=== PATIENT | female | born 1980 | race Caucasian/White ===

== ENCOUNTER 2017-02-02 07:26 | Inpatient (IN) | payer OTHER ==
[~2017-02-02] VITALS: Ht 167.6 cm; Wt 88.0 kg
[~2017-02-02 07:26] MED LIST: BUTALB-ACETAMI1 EACH PO; CARAFATE1 GM/10 ML PO; ENDOMETRIN100 MG VAGINAL; ESTRACE2 MG PO; FISH OIL 1,0001 EAC2 PO; LEVOTHYROXINE100 MCG PO; LEVOTHYROXINE75 MCG PO; NORCO 5-325 TA1 EACH PO; ONDANSETRON HCL8 MG PO; OXYCODONE HCL15 MG PO; PEPCID20 MG PO; PRENATAL CAPLE1 EACH PO; PRENATAL-FOLIC1 EACH PO; PRILOSEC20 MG PO; SUMATRIPTAN SU100 MG PO; TUMS300 MG PO
--- NOTE | 2017-02-02 09:15 | NUR ---
02/02/17 0915 Kelley Barrios REPORT FROM MANAGER PUBLISHING.
--- NOTE | 2017-03-31 12:11 | OR ---
[facility] [address] [place], [place] [address] Signed [facility] DATE OF SERVICE: 02/02/2017 OPERATIVE NOTE PREOPERATIVE DIAGNOSES: 1.Di-di twins at 35 weeks and 6 days gestation. 2.Placental abruption with reassuring heart tracing. 3.Remote delivery. 4.GBS positive. POSTOPERATIVE DIAGNOSES: 1. Di-di twins at 35 weeks and 6 days gestation. 2. Placental abruption with reassuring heart tracing. 3. Remote delivery. 4. GBS positive. PROCEDURES PERFORMED: Mid transverse delivery, primary. ESTIMATED BLOODLOSS: 700 cc. COMPLICATIONS: None. ANESTHESIA: Spinal with general anesthesia. FINDINGS: On pelvic exam, patient with bright red vaginal bleeding with large clot in the vagina. Cervix was unfavorable, fingertip to 1 cm and thick. heart tracings were reassuring. Normal uterus, normal tubes and ovaries bilaterally. On hysterotomy, a large placental abruption was noted. Delivery of 2 viable male neonates with Apgars of twin A, 8/8 and twin B, 9/9. Cord blood was obtained and pending, and baby's weight is pending. Hemostasis at the end of procedure. INDICATIONS: Ms. De La Torre is a pleasant 36-year-old G4, C9-4-9-1with di-di twins via IVF at 35 and 6 weeks gestation. She reported that upon awaking this morning, she noticed a large amount of bright red blood per her vagina with some uterine tenderness but no contractions. She presented emergently to the hospital and was immediately evaluated and found to have a large amount of blood in the vagina with a clot and a nonfavorable cervix. heart tracing was reassuring and decision was made to proceed with emergent primary Electronically Signed By: BILLIE DURAN DO 03/31/17 1211 PATIENT NAME: SAMAN DE LA TORRE OPERATIVE REPORT DATE OF : 78 PHYSICIAN: BILLIE DURAN DO REPORT #: [id number] REPORT IS CONFIDENTIAL AND NOT TO BE RELEASED WITHOUT AUTHORIZATION [facility] [address] [place], [place] [address] Signed section. Risks, benefits, alternatives were discussed in detail with patient. Patient understands and wishes to proceed with the procedure. TECHNIQUE: Patient was taken to the operating room. A time-out was performed to confirm correct patient and correct procedure. Patient was placed in a supine position with a bump under her right hip after spinal anesthesia was adequately established. Ancef 2 g preoperatively given per skip protocol. ICPs were on and running. No preop heparin was indicated. After insuring adequate spinal anesthesia, a Pfannenstiel skin incision was made and carried down to and through the fascia in the midline inferior. The fascia was nicked in the midline. Fascial incision was extended bilaterally using sharp dissection. The rectus muscles were dissected sharply and bluntly from the underlying fascia and the peritoneum was entered bluntly. Peritoneal incision was extended bilaterally using blunt dissection. The lower uterine segment was identified, and hysterotomy was performed using a surgical scalpel. Hysterotomy was extended bilaterally using blunt dissection. A small amount of blood clot was noted on hysterotomy. The surgeon's hand was placed in the lower uterine incision. This head was of twin A, was elevated into the abdomen and delivered with the assistance of fundal pressure. The was vigorous and cried. The oral nasopharynx were bulb suctioned, and the cord was doubly clamped and cut. The was handed off to awaiting pediatric team for further care. The vertex of twin B was then noted in the lower uterine segment. The surgeon's hand was placed into the uterus and the head elevated into the abdomen and delivered with the assistance of fundal pressure. The remainder of the delivered easily with the assistance of fundal pressure. Oral nasopharynx were bulb suctioned, and the was vigorous and cried. The cord was also doubly clamped and cut and marked to differentiate cord from baby A and baby B. Baby twin B was handed to awaiting pediatric team for further care. Blood placenta was expressed intact with a centrally inserted 3 vessel cords. The uterus was cleared of remaining products of conception, and uterus was repaired using 0 Vicryl in a running, locked suture. A second vertical imbricating stitch of 0 Vicryl was applied with good hemostasis noted. The pelvis was irrigated and aga i n good hemostasis was noted. A cell sheet was applied to the lower uterine segment and peritoneum was reapproximated using 2-0 Vicryl in a running, nonlocked stitch. Rectus muscles were loosely approximated in the midline using 2 interrupted sutures of 0 Vicryl. The rectus muscles were examined and found to be hemostatic. ACell powder was applied to the rectus muscles. Fascia was reapproximated with 0 Vicryl in a running, nonlocked manner. Subcutaneous tissue was then reapproximated using 3-0 Vicryl in a running, nonlocked manner. Skin was reapproximated using surgical clare. The uterus was credate for a minimal amount of blood and the patient was taken to PACU in good and stable condition with the . Sponge, needle and instrument count was correct x2 at the end of procedure. Dr. Gerber was present and participated in all portions of the procedure. Electronically Signed By: BILLIE DURAN DO 03/31/17 1211 PATIENT NAME: SAMAN DE LA TORRE OPERATIVE REPORT DATE OF : 78 PHYSICIAN: BILLIE DURAN DO REPORT #: [id number] REPORT IS CONFIDENTIAL AND NOT TO BE RELEASED WITHOUT AUTHORIZATION [address] [place] [address] Signed Billie Duran DO JDW/Kiki /[id number] Electronically Signed By: BILLIE DURAN DO 03/31/17 1211 PATIENT NAME: SAMAN DE LA TORRE OPERATIVE REPORT DATE OF : 78 PHYSICIAN: BILLIE DURAN DO REPORT #: [id number] REPORT IS CONFIDENTIAL AND NOT TO BE RELEASED WITHOUT AUTHORIZATION
== END 2017-02-04 13:18 | disposition home or self-care (01) | DRG 765 ==
LOC: FBCO 07:26 → FBC 07:41 → FBCO 03-03 13:12
PROVIDERS: Obstetrics & Gynecology; ADMIT Obstetrics & Gynecology
PROC: 10D00Z1 Extraction of Products of Conception, Low, Open Approach (ICD-10-PCS; principal; 2017-02-02 07:48)
DX: O45.93 Premature separation of placenta, unspecified, third trimester (principal); O60.14X1 Preterm labor third trimester with preterm delivery third trimester, fetus 1; O60.14X2 Preterm labor third trimester with preterm delivery third trimester, fetus 2; O30.043 Twin pregnancy, dichorionic/diamniotic, third trimester; O76 Abnormality in fetal heart rate and rhythm complicating labor and delivery; O32.2XX1 Maternal care for transverse and oblique lie, fetus 1; O99.824 Streptococcus B carrier state complicating childbirth; O32.2XX2 Maternal care for transverse and oblique lie, fetus 2; O99.344 Other mental disorders complicating childbirth; F41.9 Anxiety disorder, unspecified; O99.284 Endocrine, nutritional and metabolic diseases complicating childbirth; E03.9 Hypothyroidism, unspecified; Z3A.35 35 weeks gestation of pregnancy; Z79.899 Other long term (current) drug therapy; Z88.5 Allergy status to narcotic agent; Z88.8 Allergy status to other drugs, medicaments and biological substances; Z91.040 Latex allergy status; Z37.2 Twins, both liveborn
CPT/HCPCS: 01961; 36415; 82803; 85025; 85027; 86850; 86900; 86901; 86920; C1763; J0330; J0690; J1170; J1650; J1885; J2250; J2274; J2370; J2405; J2590; J2704; J2765; J3010; J7120

== ENCOUNTER 2018-01-12 13:38 | Emergency (ER) | payer OTHER ==
[~2018-01-12] VITALS: Ht 167.6 cm; Wt 74.8 kg
[2018-01-12] MEDS ORDERED: NORCO 5-325 TA1 EACH PO (14:27)
[2018-01-12] MEDS ORDERED: VENLAFAXINE H37.5 M1 PO (14:28)
[2018-01-12] MEDS ORDERED: XIIDRA1 EACH OU (14:29)
== END 2018-01-12 16:35 | disposition home or self-care (01) ==
LOC: ED 13:38
DX: K92.2 Gastrointestinal hemorrhage, unspecified (principal); K21.9 Gastro-esophageal reflux disease without esophagitis; Z88.8 Allergy status to other drugs, medicaments and biological substances; Z91.040 Latex allergy status; Z79.899 Other long term (current) drug therapy
CPT/HCPCS: 80053; 81001; 83605; 84703; 85025; 86850; 86900; 86901; 96360; 96361; 99284; J7030

== ENCOUNTER 2019-12-05 06:23 | Emergency (ER) | payer OTHER ==
[~2019-12-05] VITALS: Ht 167.6 cm; Wt 74.4 kg
[~2019-12-05 06:23] MED LIST changes: +ONDANSETRON ODT8 MG PO; +VENLAFAXINE H37.5 M1 PO; +XIIDRA1 EACH OU; +ZOFRAN ODT4 MG PO
--- OUTSIDE RECORDS SUMMARY | 2019-12-05 06:26 | XMS ---
PreManage Notification: SAMAN HAY Security Bilingual Operator Events No recent Security Events currently on file CRITERIA MET - Group Notification - PDMP CARE PROVIDERS NIK MCDONOUGH Metal Moulder'S Assistant/Oracle Bpm Consultant 01/13/2018-Current PHONE: [phone] Candace has no Care Guidelines for this patient. E.DConcepcion VISIT COUNT (12 MO.) 1 [facility] 1 SALVATORE Yao TOTAL 2 NOTE: Visits indicate total known visits. ED/UCC VISIT TRACKING (12 MO.) 2019 06:24 SALVATORE James OR TYPE: Emergency COMPLAINT: - ABDOMINAL PAIN 04/07/2019 09:42 Mahin QUAN OR TYPE: Emergency DIAGNOSES: - Panic disorder [episodic paroxysmal anxiety] - panic attack INPATIENT VISIT TRACKING (12 MO.) No inpatient visits to display in this time frame [email or web address]
[2019-12-05] MEDS ORDERED: NEXIUM 24HR20 M2 PO (06:46)
[2019-12-05] MEDS ORDERED: PANTOPRAZOLE SO40 MG PO (09:11)
[2019-12-05] MEDS ORDERED: CARAFATE1 GM PO (09:11)
[2019-12-05] MEDS ORDERED: NORCO 7.5-3251 EACH PO (09:11)
== END 2019-12-05 09:20 | disposition home or self-care (01) ==
LOC: ED 06:23
DX: R10.13 Epigastric pain (principal); K21.9 Gastro-esophageal reflux disease without esophagitis; Z91.040 Latex allergy status; Z88.8 Allergy status to other drugs, medicaments and biological substances; Z79.899 Other long term (current) drug therapy
CPT/HCPCS: 80053; 81001; 83690; 85025; 96374; 96375; 99284-25; C9113; J1170; J7030

== ENCOUNTER 2020-10-03 05:55 | Day surgery (SDC) | payer OTHER ==
[~2020-10-03] VITALS: Ht 167.6 cm; Wt 71.8 kg
--- NOTE | ~2020-10-03 | OR ---
[facility] [place] [facility] [address] [place], [place] [address] Draft DATE OF OPERATION: 10/03/2020 SURGEON: Konstantin Nolasco MD PREOPERATIVE DIAGNOSIS: Heavy menstrual bleeding and endometrial mass. POSTOPERATIVE DIAGNOSIS: Heavy menstrual bleeding with submucous fibroid. PROCEDURE: Hysteroscopy with partial myomectomy and D and C. ELECTRICAL CONTROL ASSEMBLER: Dr. Duran. ANESTHESIA: General. ESTIMATED BLOOD LOSS: 20 mL. SPECIMEN: Submucous fibroid tissue and endometrial curettings. DRAINS: None. PACKING: None. FINDINGS: Normal vagina and normal cervix, normal size and shaped uterus, normal-appearing cavity except for a large submucous fibroid in the upper posterior endometrial cavity with moderate vascularity over the surface and broad base on the posterior aspect of the uterine cavity. There is a moderate amount of normal appearing endometrial tissue and the rest of the cavity with both tubal ostia seen and appearing normal. COMPLICATIONS: Difficult visualization due to blood and the position of the fibroid. PATIENT NAME: SAMAN HAY OPERATIVE REPORT DATE OF : 78 REPORT #: [id number] PHYSICIAN: KONSTANTIN NOLASCO MD PCP: NIK MEJIA MD REPORT IS CONFIDENTIAL AND NOT TO BE RELEASED WITHOUT AUTHORIZATION [facility] [address] [place] [id number] Draft DESCRIPTION OF PROCEDURE: The patient was brought to the operating room, placed in supine position. After adequate general anesthesia was obtained, she was placed in the dorsal lithotomy position, prepped and draped in usual sterile fashion. Weighted speculum was placed in the vagina and the anterior lip of the cervix was grasped with an Allis clamp. The cervix was serially dilated up to #7 dilator and then the hysteroscope which had been set up was placed in the endocervical canal and entered the uterine cavity under direct visualization. Sterile saline was used as distending medium. The endocervix appeared normal. Upon entering the uterus, it was difficult to visualize the entire cavity due to the uterine mass and on close inspection, it did seem to be in the upper posterior aspect of the cavity with only about half of the fibroid visualized in the cavity. The rest of the tissue appeared normal, so the MyoSure REACH instrument was placed through the hysteroscope, but on switching from the regular outflow tube to the MyoSure REACH, the cavity appeared bloody and was difficult to visualize the cavity again. The top of the fibroid was eventually visualized and the MyoSure REACH used to trim the fibroid down partially, but because of the visualization, the fibroid could not be completely removed. At this point, the hysteroscope was removed. The fluid deficit at this point was 850 mL, but had been 450 mL before starting any tissue removal and there was no sudden increase in fluid just a gradual increase in fluid loss. After removal of the hysteroscope, the cervix was dilated further and a sharp curette introduced in the uterine cavity and scraped 360-degree fashion removing small additional amount of tissue. At this point, all instruments were removed from the cervix and uterus and the cervix observed and noted to have good hemostasis. I was decided not to attempt further removal because of the slowly increasing fluid deficit and difficult visualization. At no time there appear to be any perforation of the uterus and the cavity was able to be filled and just seemed to slowly lose fluid. So at this point, all instruments were removed from the vagina. The patient tolerated the procedure well and went to the recovery room in good condition. The sponge and instrument counts were correct at the end of the procedure. Myomectomy specimen and uterine curettings were sent to Pathology for identification. Konstantin Nolasco MD MJB/MODL /[id number] PATIENT NAME: SAMAN HAY OPERATIVE REPORT DATE OF : 78 REPORT #: [id number] PHYSICIAN: KONSTANTIN NOLASCO MD PCP: NIK MEJIA MD REPORT IS CONFIDENTIAL AND NOT TO BE RELEASED WITHOUT AUTHORIZATION [address] [address] Draft cc: Nik Mejia MD Copies: NIK MEJIA MD ~ PATIENT NAME: SAMAN HAY OPERATIVE REPORT DATE OF : 78 REPORT #: [id number] PHYSICIAN: KONSTANTIN NOLASCO MD PCP: NIK MEJIA MD REPORT IS CONFIDENTIAL AND NOT TO BE RELEASED WITHOUT AUTHORIZATION
[~2020-10-03 05:55] MED LIST changes: +CARAFATE1 GM PO; +DIAZEPAM5 MG; +LEVOTHYROXINE88 MC1; +NEXIUM 24HR20 M2 PO; +NORCO 7.5-3251 EACH PO; +PANTOPRAZOLE SO40 MG PO
--- NOTE | 2020-10-03 08:20 | NUR ---
10/03/20 0820 Ruthie Champion 0813- PT ARRIVES TO PACU REACTIVE TO VOICE. PT REPORTS NO PAIN OR NAUSEA AND FALLS TO SLEEP WHEN NOT BEING TALKED TO. RESP EVEN AND UNLABORED. OXYGEN SAT HIGH 90'S TO 100% ON 9L VIA MASK. 0816- OXYGEN TITRATED DOWN TO 6L VIA MASK.
[2020-10-03] MEDS ORDERED: HYDROCODON-ACE1 EA10 PO (08:43)
[2020-10-03] MEDS ORDERED: MOTRIN IB200 MG PO (08:43)
--- NOTE | 2020-10-03 13:44 | NUR ---
PT TAKEN TO OR, IN RM READING. HE SEEMS VERY CONTENT, WILL REMAIN IN RM. HAS NO ISSUE OR QUESTIONS. GAVE BLESSING, WILL FOLLOW
--- NOTE | 2020-10-04 14:51 | PATH ---
[facility] [address] [place], [place] [address] Signed SPECIMEN(S): A ENDOMETRIAL CURETTINGS AND FIBROID SPECIMEN SOURCE: A. ENDOMETRIAL CURETTINGS AND FIBROID CLINICAL HISTORY: Heavy menstrual bleeding; endometrial mass. Hysteroscopy with removal of endometrial mass. FINAL PATHOLOGIC DIAGNOSIS: Endometrium and "fibroid", curettage: - Secretory phase endometrium. - Fragments of benign smooth muscle, compatible with leiomyoma. - Negative for atypical hyperplasia or malignancy. NAL:cml:C2Nr MICROSCOPIC EXAMINATION: Histologic sections of all submitted blocks are examined by light microscopy. These findings, together with the gross examination, support the pathologic diagnosis. GROSS DESCRIPTION: The specimen, labeled "PL, A," and designated on the requisition "EMC and fibroid," is received in formalin and consists of a Telfa pad and a section by containing multiple agudelo-white rubbery to dark red soft tissue fragments, 4.2 x 3.6 x 0.8 cm in aggregate. The specimen is submitted in toto in two cassettes (A1-A2). AI (under the direct supervision of a pathologist) The Gross Description was prepared using a voice recognition system. The report was reviewed for accuracy; however, sound-alike word errors, addition and/or deletions may occur. If there is any question about this report, please contact Client Services. PERFORMING LABORATORY: The technical component was performed by [facility], [address] [place] [id number] (Furniture Mover Driver: Alyson Sanchez MD; CLIA# [id number]). [facility] [address] [address] (CLIA# [id number]). Diagnostician: Yue Butt MD PATIENT NAME: SAMAN HAY PATHOLOGY DATE OF : 78 REPORT #: [id number] PHYSICIAN: MANJIT PATHOLOGY PCP: NIK MCDONOUGH MD REPORT IS CONFIDENTIAL AND NOT TO BE RELEASED WITHOUT AUTHORIZATION [address] [address] Signed Pathologist Electronically Signed 10/04/2020 Copies: ~ PATIENT NAME: SAMAN HAY PATHOLOGY DATE OF : 78 REPORT #: [id number] PHYSICIAN: MANJIT PATHOLOGY PCP: NIK MCDONOUGH MD REPORT IS CONFIDENTIAL AND NOT TO BE RELEASED WITHOUT AUTHORIZATION
== END 2020-10-03 09:00 | disposition home or self-care (01) ==
LOC: DS 05:55 → OPS 05:55
PROVIDERS: ATTEND General Practice
PROC: 0UB98ZZ Excision of Uterus, Via Natural or Artificial Opening Endoscopic (ICD-10-PCS; principal; 2020-10-03 06:45)
DX: D25.0 Submucous leiomyoma of uterus (principal); E03.9 Hypothyroidism, unspecified; K21.9 Gastro-esophageal reflux disease without esophagitis; G43.909 Migraine, unspecified, not intractable, without status migrainosus; R01.0 Benign and innocent cardiac murmurs; E78.00 Pure hypercholesterolemia, unspecified; Z88.5 Allergy status to narcotic agent; Z88.8 Allergy status to other drugs, medicaments and biological substances; Z91.040 Latex allergy status; Z80.41 Family history of malignant neoplasm of ovary
CPT/HCPCS: 00952; J0131; J1100; J1885; J2001; J2250; J2405; J2704; J3010; J7121

== ENCOUNTER 2021-04-23 04:13 | Emergency (ER) | payer OTHER ==
[~2021-04-23] VITALS: Ht 167.6 cm; Wt 66.7 kg
[~2021-04-23 04:13] MED LIST changes: +HYDROCODON-ACE1 EA10 PO; +MOTRIN IB200 MG PO
--- OUTSIDE RECORDS SUMMARY | 2021-04-23 04:14 | XMS ---
PreManage Notification: SAMAN HAY Security Belt Sander Stone Events No recent Security Events currently on file CRITERIA MET - Group Notification - PDMP CARE PROVIDERS NIK MCDONOUGH Paper Stacker/Digital Traffic Coordinator 01/13/2018-Current PHONE: [phone] Candace has no Care Guidelines for this patient. EThanh VISIT COUNT (12 MO.) 1 SALVATORE Yao TOTAL 1 NOTE: Visits indicate total known visits. ED/UCC VISIT TRACKING (12 MO.) 04/23/2021 04:13 SALVATORE James OR TYPE: Emergency COMPLAINT: - VAGINAL BLEEDING INPATIENT VISIT TRACKING (12 MO.) No inpatient visits to display in this time frame [email or web address]
[2021-04-23] MEDS ORDERED: LOTEMAX SM5 GM OP (04:31)
[2021-04-23] MEDS ORDERED: XIIDRA1 EACH OP (04:31)
--- NOTE | 2021-04-23 17:35 | EKG ---
[facility] [address] [facility] [place], [place] [address] Signed Sinus tachycardia Possible Left atrial enlargement Septal infarct , age undetermined Abnormal ECG No previous ECGs available Confirmed by TOM HOBSON MD ([id number]) on 04/23/2021 5:35:18 PM Electronically Signed By: TOM HOBSON MD 04/23/21 1735 PATIENT NAME: SAMAN HAY JEYSON Electrocardiogram DATE OF : 78 PHYSICIAN: TOM HOBSON MD REPORT #: [id number] REPORT IS CONFIDENTIAL AND NOT TO BE RELEASED WITHOUT AUTHORIZATION
== END 2021-04-23 06:30 | disposition home or self-care (01) ==
LOC: ED 04:13
DX: N93.9 Abnormal uterine and vaginal bleeding, unspecified (principal); R07.9 Chest pain, unspecified; E03.9 Hypothyroidism, unspecified; R00.0 Tachycardia, unspecified; Z91.040 Latex allergy status; Z88.5 Allergy status to narcotic agent; Z88.8 Allergy status to other drugs, medicaments and biological substances
CPT/HCPCS: 80053; 84484; 84703; 85025; 85610; 85730; 93005; 93010; 99285-25

== ENCOUNTER 2021-05-01 06:55 | Day surgery (SDC) | payer OTHER ==
[~2021-05-01] VITALS: Ht 167.6 cm; Wt 67.2 kg
[~2021-05-01 06:55] MED LIST changes: +LOTEMAX SM5 GM OP; +XIIDRA1 EACH OP
--- NOTE | 2021-05-01 12:11 | NUR ---
05/01/21 1211 Heather Moreland 1101 PT ARRIVED TO PACU ON 6L VIA MASK, VSS. PT SITTING UP IN BED AND GRABBING AT SIDE RAILS. RN REORIENTING PT TO PACU. PT UNABLE TO FOLLOW COMMANDS AND VERY DROWSY. RN CONTINUES TO REORIENT PT. RESP EVEN AND UNLABORED. 1105 PT ASKING ABOUT AND DENEIS PAIN AND NAUSEA. PT VERY DRWOSY. PT REPORTS FEELING SOB, O2 SAT 100% AND LUNG SOUNDS CLEAR. RN ENCOURAGES DEEP BREATHIONG AND COUGHING. 1109 PT REACHING FOR O2 MASK AND MASK REMOVED. HOB INCREASED. 1120 PT CONTINUES TO REPORT SOB AND VSS. PT MORE AWAKE AND STARTS TO REPORTS PAIN 02/01. "BUT MY BREATHING IS BUGGING ME MORE." 1123 DIRECTOR BUSINESS SYSTEMS CALLED AND NEW ORDER RECEIVED. 1125 TALKING TO PT. 1127 ANXIETY MEDICATION GIVEN.
--- NOTE | 2021-05-01 12:41 | NUR ---
1220 PT BACK TO ROOM FROM PACU, COMPLAINS OF PAIN 7/10 TO ABD OXY AND IBUPROFEN GIVEN, PT DENIES NAUSEA SHE IS EATING PUDDING AND DRINKING WATER TOLERATES WELL. AT BEDSIDE. PT TUCKED IN WITH CALL LIGHT WITHIN REACH.
--- NOTE | 2021-05-01 12:44 | NUR ---
1240 PT RESTING COMFORTABLY, TOOK RX TO PHARMACY TO GET FILLED BEFORE SHE IS DISCHARGED.
--- NOTE | 2021-05-01 13:09 | OR ---
[facility] [address] [place], [place] [address] Signed DATE OF OPERATION: 05/01/2021 SURGEON: Konstantin Nolasco MD PREOPERATIVE DIAGNOSES: Submucous fibroids and abnormal uterine bleeding. POSTOPERATIVE DIAGNOSES: Submucous fibroids and abnormal uterine bleeding, omental adhesions. PROCEDURES: Total laparoscopic hysterectomy, bilateral salpingectomy, lysis of adhesions, and cystoscopy. SANITATION ASSOCIATE: Dr. Duran. ANESTHESIA: General. ESTIMATED BLOOD LOSS: 10 mL. SPECIMEN: Uterus with cervix and both fallopian tubes. DRAINS: Chung to bladder. PACKING: None. FINDINGS: Cervix large, thick closed, uterus 6-week size, symmetric, free of any endometriosis or adhesions. The anterior cul-de-sac showed slight elevation of bladder, but no dense adhesions. Posterior cul-de-sac was free of any endometriosis or adhesions. There was a slight to moderate amount of dark blood in the abdomen prior to surgery. The left tube was normal in length and had normal-appearing fimbriated end. No adhesions. The left ovary was normal in size and shape without any evidence of endometriosis or adhesions. The right tube was normal in length with a normal-appearing fimbriated end Electronically Signed By: KONSTANTIN NOLASCO MD 05/01/21 1309 PATIENT NAME: SAMAN HAY OPERATIVE REPORT DATE OF : 78 REPORT #: [id number] PHYSICIAN: KONSTANTIN NOLASCO MD PCP: NIK MEJIA MD REPORT IS CONFIDENTIAL AND NOT TO BE RELEASED WITHOUT AUTHORIZATION [facility] [address] [facility] [place] [address] Signed and no adhesions. Right ovary is normal size and shape without any evidence endometriosis or adhesions. There were some omental adhesions just below the level of the umbilicus somewhat filmy, but also some small vasculature within the adhesions. There is no bowel in these adhesions. No other adhesions or masses were seen. DESCRIPTION OF PROCEDURE: The patient was brought to the operating room, placed in supine position. After adequate general anesthesia was obtained, she was placed in the dorsal lithotomy position, and prepped and draped in usual sterile fashion. A Chung catheter was placed in the bladder and a weighted speculum was placed in the vagina. The anterior lip of the cervix was grasped with an Allis clamp. The AdTribare uterine manipulator was then carefully inserted through the cervix into the fundus of the uterus and the balloon filled with sterile water. The Allis clamp and weighted speculum were removed and the cervical cap slid up and around the cervix and the vaginal cup slid up against the cervical cap and tightened in place. A finger was used to confirm the correct placement of the cap in the cup. Attention was then drawn to the abdomen. A small infraumbilical skin incision was made with a scalpel after injecting the area with 0.25% Marcaine with epinephrine. Subcutaneous tissue was dissected with Metzenbaum scissors and the fascia identified, grasped with hemostats, elevated, nicked with Metzenbaum scissors and extended in a transverse fashion using Metzenbaum scissors. Retention stitches of 0 Vicryl suture placed above and below the incision. The peritoneum was opened with Metzenbaum scissors. The Jena cannula and sleeve then entered the abdomen under direct visualization. The balloon was filled with air in the outer sleeve slid down and attached in place. The retention stitches were then attached to the outer sleeve to further hold this in place. The trocar was removed and the laparoscope video attachment entered the abdomen under direct visualization. The above findings were noted. A small skin incision was made on the left side about 10 cm lateral to the midline just below the level of the umbilicus and after transiluminating the abdominal wall and then injecting the area with 0.25% Marcaine with epinephrine, a small skin incision was made and a bladed 5-mm trocar and sleeve entered the abdomen under direct visualization. The trocar was removed, the balloon filled with air and then blunt grasper inserted. On the right side again just below the level of the umbilicus and again approximately 10 cm lateral to the midline, area was transilluminated to avoid any vessels. The area injected with 0.25% Marcaine with epinephrine and then, a skin incision made with a scalpel. A Veress needle with expandable sleeve was placed into the abdomen under direct visualization. The Veress needle was removed and expandable trocar with port was then placed through the expandable sleeve into the abdomen again under direct visualization, trocar was removed and 2nd blunt grasper inserted. The above findings were confirmed. The LigaSure bipolar [place] forceps were then used for dissection. Electronically Signed By: KONSTANTIN NOLASCO MD 05/01/21 1309 PATIENT NAME: SAMAN HAY OPERATIVE REPORT DATE OF : 78 REPORT #: [id number] PHYSICIAN: KONSTANTIN NOLASCO MD PCP: NIK MEJIA MD REPORT IS CONFIDENTIAL AND NOT TO BE RELEASED WITHOUT AUTHORIZATION [address] [address] Signed The omental adhesions were taken down against the anterior abdominal wall by cauterizing then cutting the adhesions. The mesosalpinx of each tube was cauterized and cut down the length of the tube and then the proximal portion of the tube was cauterized and transected and the two tubes taken out through the larger right lateral port. The utero-ovarian ligaments were cauterized in several places and cut on each side. Then on the left side, the round ligament was cauterized in several places and cut and the upper broad ligament cauterized and cut. The anterior and posterior leaves of the broad ligament were then individually, cauterized and cut down the length of the broad ligament, staying near the uterus and extending down to the level of the cervical cap and across to the midline at the level of the cervical cap. This was done anteriorly and posteriorly. The uterine vessels were then exposed, these were cauterized in several places and inside the cervical cap, which could be palpated and cut right along the edge of the cervical cap. The dissection was taken down until just the vaginal wall was remained on the left. On the right side, the round ligament was cauterized and cut. The upper broad ligament cauterized and cut and then, the anterior and posterior leaves of the broad ligament were individually cauterized and cut down the length of the broad ligament and continuing and connecting with previous dissection in the midline. The exposed uterine vessels were cauterized in several places and cut at the level of the cervical cap. The tissue around the cervical cap was cauterized and cut down to the vaginal wall. With all vessels cauterized, the Sonicision was brought in and the vaginal wall opened in the groove of the cervical cap, this was done starting in the midline posteriorly and extending in the groove of the cup from posterior to anterior on the left side and then, posterior to anterior on the right side meeting again anteriorly in the midline, this the uterus and cervix from the vaginal wall. Attention was then drawn back to the vagina, where the VCare uterine manipulator was carefully removed, the cervix seen in the vagina, so it was grasped with an Allis clamp and the uterus carefully removed from the vagina. A sponge filled glove was put in the vagina, so that the abdomen could be re-insufflated. The abdomen was re-insufflated and the pelvis was irrigated, suctioned and examined noted to have good hemostasis. The Endostitch with delayed absorbable barbed suture was used to close the cuff, this was done from the right uterosacral ligament, posterior to anterior and then, the anterior vaginal wall posterior to anterior. With the first bite, the stitch was placed through the loop at the end of the barbed suture to keep it from pulling through. The closure was then continued [id number] first on the posterior edge of the vaginal wall then the anterior edge of the vaginal wall, this was continued across till reaching the level of the left uterosacral ligament. The stitch was then taken back through the combined cuff posterior to anterior back to the midline to lock the stitch in place and then, the suture cut against the vaginal wall. The entire pelvis was irrigated, suctioned, examined and noted to have good hemostasis. At Electronically Signed By: KONSTANTIN NOLASCO MD 05/01/21 1309 PATIENT NAME: SAMAN HAY OPERATIVE REPORT DATE OF : 78 REPORT #: [id number] PHYSICIAN: KONSTANTIN NOLASCO MD PCP: NIK MEJIA MD REPORT IS CONFIDENTIAL AND NOT TO BE RELEASED WITHOUT AUTHORIZATION [address] [address] Signed this point, all instruments were removed, the gas allowed to escape and the final sleeve removed. The infraumbilical fascia was identified and then closed with a running stitch of 0 Vicryl suture. The two retention stitches were tied together for further support. The three skin incisions were closed using subcuticular stitches of 4-0 Vicryl. Attention was then drawn back to the vagina. Chung catheter was removed and a 70-degree cystoscope was carefully placed in the urethra and entered the bladder under direct visualization. Sterile water was used as distending medium. The bladder was filled. The dome, both sides and anterior and posterior were carefully examined. No stitches, no defects and no were noted. Both ureteral orifices were easily identified and both showed good flow of urine jets. So, the bladder was drained and the Chung catheter placed back in the bladder. The sponge filled glove was also removed from the vagina. The patient tolerated the procedure well, went to recovery room in good condition. The sponge, needle, and instrument counts were correct in the uterus with both fallopian tubes sent to Pathology for identification. Konstantin Nolasco MD MJB/MODL /[id number] cc: Nik Mejia MD Copies: NIK MEJIA MD ~ Electronically Signed By: KONSTANTIN NOLASCO MD 05/01/21 1309 PATIENT NAME: SAMAN HAY OPERATIVE REPORT DATE OF : 78 REPORT #: [id number] PHYSICIAN: KONSTANTIN NOLASCO MD PCP: NIK MEJIA MD REPORT IS CONFIDENTIAL AND NOT TO BE RELEASED WITHOUT AUTHORIZATION
--- NOTE | 2021-05-01 13:51 | NUR ---
1345 [place] CATH REMOVED THERE WAS 200ML OF YELLOW URINE IN [place] BAG. PT WANTED TO GET UP AND WALK AROUND SHE FEELS THAT IT WILL HELP REMOVE SOME CO2 FROM ABD. PT ASKED TO USE RESTROOM SHE WAS ABLE TO VOID 20ML OF CLEAR YELLOW URINE. HER BENNIE PAD HAS BEEN CLEAN SINCE SHE CAME BACK FROM PACU.
--- NOTE | 2021-05-01 13:59 | NUR ---
1350 PT REPORTS PAIN AT 3/10.
--- NOTE | 2021-05-01 15:19 | NUR ---
1440 PT UP TO THE BATHROOM SHE WAS ABLE TO VOID 200ML OF YELLOW URINE, HER BENNIE PAD WAS CLEAN AND DRY. PT REPORTS READINESS TO GO HOME, BOTH IV'S WERE DC'D TIP IN TACT. DISCHARGE INSTRUCTIONS GIVEN TO BOTH PT AND BOTH VOICED UNDERSTANDING
--- NOTE | 2021-05-02 16:12 | PATH ---
[facility] [address] [place], [place] [address] Signed SPECIMEN(S): A UTERUS, CERVIX, BILAT FALLOPIAN TUBES SPECIMEN SOURCE: A. UTERUS, CERVIX, BILAT FALLOPIAN TUBES CLINICAL HISTORY: Submucous leiomyoma of uterus. TLH, BS, cysto. FINAL PATHOLOGIC DIAGNOSIS: Uterus, cervix, bilateral fallopian tubes, hysterectomy with bilateral salpingectomy: - Ectocervical and endocervical epithelia within normal limits. - Uterus with proliferative-phase endometrium and subserosal endometriosis. - Submucosal leiomyoma. - Fallopian tubes within normal limits. - Paratubal cyst. TWK:[facility]:C2NR MICROSCOPIC EXAMINATION: Histologic sections of all submitted blocks are examined by light microscopy. These findings, together with the gross examination, support the pathologic diagnosis. GROSS DESCRIPTION: The specimen, labeled "PL, uterus, cervix, bilateral fallopian tubes," is received in formalin and consists of uterus and cervix with attached and undesignated fallopian tubes. Specimen is previously longitudinally opened and cannot be oriented. The uterus measures 5.5 x 5.0 x 7.3 cm. The serosal surface is pink-agudelo, smooth. The uterus weighs 145 grams. The ectocervix is pink-agudelo, smooth and measures 3.5 x 3.7 cm. Sectioning through the cervix reveals pink-agudelo, homogenous tissue. The endometrial cavity measures 4.2 x 3.1 cm. It is lined with pink-red, hemorrhagic endometrium. Endometrial cavity is almost completely obliterated with white, firm, subendometrial nodule that measures 4.5 cm in greatest dimension. Sectioning through the nodule reveals white, firm, whorled surface. The remaining of the myometrium is pink-agudelo, homogenous. Myometrium measures 2.0 cm in thickness the endometrium measures up to 0.2 cm. Both fallopian tubes show fimbria and violaceous and smooth serosa. The first fallopian tube measures 6.0 x 0.6 cm. Second fallopian tube measures 5.5 cm in PATIENT NAME: SAMAN HAY PATHOLOGY DATE OF : 78 REPORT #: [id number] PHYSICIAN: MANJIT HARRIS PCP: NIK MCDONOUGH MD REPORT IS CONFIDENTIAL AND NOT TO BE RELEASED WITHOUT AUTHORIZATION [facility] [address] [place], [place] [address] Signed length and 0.7 cm in diameter. Sectioning through both fallopian tubes is grossly unremarkable. Cassette Summary: (A1) Cervix, eligibility services representative sections (A2) Endomyometrium, eligibility services representative sections (A3-A4) Subendometrial nodule, eligibility services representative sections (A5) First fallopian tube, eligibility services representative sections (A6) Second fallopian tube, eligibility services representative sections JS (under the direct supervision of a pathologist) The Gross Description was prepared using a voice recognition system. The report was reviewed for accuracy; however, sound-alike word errors, addition and/or deletions may occur. If there is any question about this report, please contact Client Services. PERFORMING LABORATORY: The technical component was performed by [facility] [address] (Nurseryperson: Alyson Sanchez MD; CLIA# [id number]). Professional [facility], [address] [address] (IA# [id number]). Diagnostician: Steven Dukes MD Pathologist Electronically Signed 05/02/2021 Copies: ~ PATIENT NAME: SAMAN HAY PATHOLOGY DATE OF : 78 REPORT #: [id number] PHYSICIAN: MANJIT PATHOLOGY PCP: NIK MCDONOUGH MD REPORT IS CONFIDENTIAL AND NOT TO BE RELEASED WITHOUT AUTHORIZATION
--- NOTE | 2021-05-02 21:32 | EKG ---
[facility] [address] [facility] [place] [address] Signed Normal sinus rhythm Normal ECG When compared with ECG of 23-APR-2021 05:16, Nonspecific T wave abnormality no longer evident in Anterolateral leads Confirmed by CHAI TAYLOR DO ([id number]) on 05/02/2021 9:32:04 PM Electronically Signed By: CHAI TAYLOR DO 05/02/21 213 PATIENT NAME: SAMAN HAY Electrocardiogram DATE OF : 78 PHYSICIAN: CHAI TAYLOR DO REPORT #: [id number] REPORT IS CONFIDENTIAL AND NOT TO BE RELEASED WITHOUT AUTHORIZATION
== END 2021-05-01 15:00 | disposition home or self-care (01) ==
LOC: DS 06:55
PROVIDERS: ATTEND General Practice
PROC: 0UT94ZZ Resection of Uterus, Percutaneous Endoscopic Approach (ICD-10-PCS; principal; 2021-05-01 09:00)
PROC: 0UT74ZZ Resection of Bilateral Fallopian Tubes, Percutaneous Endoscopic Approach (ICD-10-PCS; 2021-05-01 09:00)
DX: D25.0 Submucous leiomyoma of uterus (principal); N80.0 Endometriosis of uterus; N83.8 Other noninflammatory disorders of ovary, fallopian tube and broad ligament; K66.0 Peritoneal adhesions (postprocedural) (postinfection); E03.9 Hypothyroidism, unspecified; Z88.8 Allergy status to other drugs, medicaments and biological substances; Z88.6 Allergy status to analgesic agent; Z91.040 Latex allergy status
CPT/HCPCS: 85025; 86850; 86900; 86901; 93005; 93010; A9270; J0690; J1100; J1644; J1885; J2001; J2250; J2405; J2704; J3010; J7121

== ENCOUNTER 2021-05-08 16:57 | Emergency (ER) | payer OTHER ==
[~2021-05-08] VITALS: Ht 167.6 cm; Wt 65.8 kg
--- OUTSIDE RECORDS SUMMARY | 2021-05-08 17:00 | XMS ---
PreManage Notification: SAMAN HAY Security Electron Microscopist Events No recent Security Events currently on file CRITERIA MET - Group Notification - PDMP - [facility] - 2 Visits in 30 Days CARE PROVIDERS NIK MCDONOUGH Sugar Sampler/Head Of Design 01/13/2018-Current PHONE: [phone] SHARONDA Rosa Internal Medicine 04/24/2021-Current PHONE: [phone] Candace has no Care Guidelines for this patient. EThanh VISIT COUNT (12 MO.) [facility] TOTAL 4 NOTE: Visits indicate total known visits. ED/UCC VISIT TRACKING (12 MO.) 05/08/2021 16:58 SALVATORE Figueroa TYPE: Emergency COMPLAINT: - CHEST PAIN/SOB 04/26/2021 08:[address] [facility] Meghan QUINONE[place] TYPE: Emergency DIAGNOSES: - Pleurodynia - chest pain and diff breathing - Chest Pain; Difficulty Breathing 04/25/2021 13:37 [facility] [place] TYPE: Emergency DIAGNOSES: - Pain in left leg - SOB - Shortness of Breath - Leg Pain 04/23/2021 04:13 [facility] [place] TYPE: Emergency COMPLAINT: - VAGINAL BLEEDING DIAGNOSES: - Other specified abnormal uterine and vaginal bleeding - Allergy status to narcotic agent - Allergy status to other drugs, medicaments and biological substances - Hypothyroidism, unspecified - Abnormal uterine and vaginal bleeding, unspecified - Abnormal uterine and vaginal bleeding, unspecified - Chest pain, unspecified - Latex allergy status - Tachycardia, unspecified INPATIENT VISIT TRACKING (12 MO.) No inpatient visits to display in this time frame [id number]
[2021-05-08] MEDS ORDERED: IBUPROFEN800 MG PO (20:46)
[2021-05-08] MEDS ORDERED: OXYCODONE-ACET1 EAC1 PO (20:46)
[2021-05-08] MEDS ORDERED: MEDROXYPROGESTE10 MG PO (20:46)
--- NOTE | 2021-05-09 07:23 | EKG ---
[facility] [address] [facility] [place] [address] Signed Sinus tachycardia Anterior infarct , age undetermined T wave abnormality, consider inferior ischemia Abnormal ECG When compared with ECG of 01-MAY-2021 07:14, Anterior infarct is now present Inverted T waves have replaced nonspecific T wave abnormality in Inferior leads Confirmed by TOM HOBSON MD ([id number]) on 05/09/2021 7:22:50 AM Electronically Signed By: TOM HOBSON MD 05/09/21722 PATIENT NAME: SAMAN HAY Electrocardiogram DATE OF : 78 PHYSICIAN: TOM HOBSON MD REPORT #: [id number] REPORT IS CONFIDENTIAL AND NOT TO BE RELEASED WITHOUT AUTHORIZATION
== END 2021-05-08 20:37 | disposition home or self-care (01) ==
LOC: ED 16:57
DX: R07.89 Other chest pain (principal); R06.00 Dyspnea, unspecified; K21.9 Gastro-esophageal reflux disease without esophagitis; E78.00 Pure hypercholesterolemia, unspecified; E03.9 Hypothyroidism, unspecified; D64.9 Anemia, unspecified; Z20.822 Contact with and (suspected) exposure to COVID-19; Z91.040 Latex allergy status; Z88.6 Allergy status to analgesic agent; Z88.8 Allergy status to other drugs, medicaments and biological substances; Z79.899 Other long term (current) drug therapy
CPT/HCPCS: 71045; 71260; 80053; 83735; 83880; 84484; 85025; 85379; 93005; 93010; 99285-25; C9803; Q9967; U0003

== ENCOUNTER 2021-05-20 09:38 | Emergency (ER) | payer OTHER ==
[~2021-05-20] VITALS: Ht 167.6 cm; Wt 66.3 kg
[~2021-05-20 09:38] MED LIST changes: +IBUPROFEN800 MG PO; +MEDROXYPROGESTE10 MG PO; +OXYCODONE-ACET1 EAC1 PO
--- OUTSIDE RECORDS SUMMARY | 2021-05-20 11:19 | XMS ---
PreManage Notification: SAMAN HAY Security Expanded Duty Dental Assistant Events No recent Security Events currently on file CRITERIA MET - [facility] - 2 Visits in 30 Days - PDMP - Group Notification CARE PROVIDERS NIK MCDONOUGH Pbx Repairer/Hydraulic Press Operator 01/13/2018-Current PHONE: [phone] SHARONDA Rosa Internal Medicine 04/24/2021-Current PHONE: [phone] Candace has no Care Guidelines for this patient. EThanh VISIT COUNT (12 MO.) [address] [place], [place] [address] TOTAL 5 NOTE: Visits indicate total known visits. ED/UCC VISIT TRACKING (12 MO.) 05/20/2021 09:39 [facility] [place] TYPE: Emergency COMPLAINT: - L LEG PAIN 05/08/2021 16:58 [facility] James [place] TYPE: Emergency COMPLAINT: - CHEST PAIN/SOB DIAGNOSES: - Pure hypercholesterolemia, unspecified - Latex allergy status - Allergy status to other drugs, medicaments and biological substances - Other chest pain - Dyspnea, unspecified - Anemia, unspecified - Hypothyroidism, unspecified - Allergy status to analgesic agent - Gastro-esophageal reflux disease without esophagitis - Other remote computer terminal operator (current) drug therapy 04/26/2021 08:45 [facility] [place] TYPE: Emergency DIAGNOSES: - Pleurodynia - chest pain and diff breathing - Chest Pain; Difficulty Breathing 04/25/2021 13:37 [facility] [place] QUINONE[place] TYPE: Emergency DIAGNOSES: - Pain in left leg - SOB - Shortness of Breath - Leg Pain 04/23/2021 04:13 SALVATORE James [place] TYPE: Emergency COMPLAINT: - VAGINAL BLEEDING DIAGNOSES: [...] visits to display in this time frame [email or web address]
[2021-05-20] MEDS ORDERED: CYCLOBENZAPRINE10 MG PO (11:38)
[2021-05-20] MEDS ORDERED: NEURONTIN100 MG PO (11:38)
== END 2021-05-20 11:55 | disposition home or self-care (01) ==
LOC: ED 09:38
DX: M79.605 Pain in left leg (principal); K21.9 Gastro-esophageal reflux disease without esophagitis; E03.9 Hypothyroidism, unspecified; E78.00 Pure hypercholesterolemia, unspecified; D64.9 Anemia, unspecified; Z91.040 Latex allergy status; Z88.6 Allergy status to analgesic agent; Z88.8 Allergy status to other drugs, medicaments and biological substances; Z79.899 Other long term (current) drug therapy
CPT/HCPCS: 73590; 93971; 99284-25

== ENCOUNTER 2021-12-29 08:19 | Emergency (ER) | payer OTHER ==
[~2021-12-29] VITALS: Ht 167.6 cm; Wt 66.3 kg
[~2021-12-29 08:19] MED LIST changes: +CYCLOBENZAPRINE10 MG PO; +NEURONTIN100 MG PO
--- OUTSIDE RECORDS SUMMARY | 2021-12-29 08:22 | XMS ---
PreManage Notification: SAMAN HAY Security Document Examiner Events No recent Security Events currently on file CRITERIA MET - PDMP - Group Notification CARE PROVIDERS NIK MCDONOUGH Sap Security Architect/Transit Driver 01/13/2018-Current PHONE: [phone] SHARONDA Rosa Internal Medicine 04/24/2021-Current PHONE: [phone] Candace has no Care Guidelines for this patient. EThanh VISIT COUNT (12 MO.) 2 Amy Yao TOTAL 6 NOTE: Visits indicate total known visits. ED/UCC VISIT TRACKING (12 MO.) 12/29/2021 08:20 SAL[facility]ATORE James [place] TYPE: Emergency COMPLAINT: - ABD PAIN 05/20/2021 09:39 SAL[facility]ATORE James [place] TYPE: Emergency COMPLAINT: - L LEG PAIN DIAGNOSES: - Pain in left leg - Pure hypercholesterolemia, unspecified - Anemia, unspecified - Other rn long term care (current) drug therapy - Hypothyroidism, unspecified - Allergy status to other drugs, medicaments and biological substances - Gastro-esophageal reflux disease without esophagitis - Latex allergy status - Allergy status to analgesic agent 05/08/2021 16:58 SALVATORE Figueroa TYPE: Emergency COMPLAINT: - CHEST PAIN/SOB DIAGNOSES: - Pure hypercholesterolemia, unspecified - Latex allergy status - Allergy status to other drugs, medicaments and biological substances - Other chest pain - Dyspnea, unspecified - Anemia, unspecified - Hypothyroidism, unspecified - Allergy status to analgesic agent - Gastro-esophageal reflux disease without esophagitis - Other longterm (current) drug therapy [facility]21 08[facility] DIAGNOSES: - Pleurodynia - chest pain and diff breathing - Chest Pain; Difficulty Breathing 04/25/2021 13:37 [facility]: Emergency DIAGNOSES: - Pain in left leg - SOB - Shortness of Breath - Leg Pain 04/23/2021 04:13 [facility] [place] TYPE: Emergency COMPLAINT: - VAGINAL BLEEDING [...] visits to display in this time frame [id number]
[2021-12-29] MEDS ORDERED: LEVOTHYROXINE88 MCG PO (08:44)
[2021-12-29] MEDS ORDERED: DIAZEPAM10 MG PO (08:45)
[2021-12-29] MEDS ORDERED: NEXIUM20 MG PO (08:45)
[2021-12-29] MEDS ORDERED: TYRVAYA0.03 MG/0. NS (08:46)
[2021-12-30] MEDS ORDERED: PREDNISONE20 MG PO (11:51)
== END 2021-12-29 11:05 | disposition home or self-care (01) ==
LOC: ED 08:19
DX: R31.9 Hematuria, unspecified (principal); R10.12 Left upper quadrant pain; K21.9 Gastro-esophageal reflux disease without esophagitis; Z88.8 Allergy status to other drugs, medicaments and biological substances; Z91.040 Latex allergy status; Z79.899 Other long term (current) drug therapy
CPT/HCPCS: 36415; 74176; 80048; 81001; 85025

== ENCOUNTER 2021-12-30 07:59 | Emergency (ER) | payer OTHER ==
[~2021-12-30] VITALS: Ht 167.6 cm; Wt 63.6 kg
[~2021-12-30 07:59] MED LIST changes: +DIAZEPAM10 MG PO; +LEVOTHYROXINE88 MCG PO; +NEXIUM20 MG PO; +TYRVAYA0.03 MG/0. NS
--- OUTSIDE RECORDS SUMMARY | 2021-12-30 08:02 | XMS ---
PreManage Notification: SAMAN HAY Security Hot Mill Supervisor Events No recent Security Events currently on file CRITERIA MET - Group Notification - [facility] - [facility]its in 30 Days [facility] NIK MCDONOUGH Weather Strip Installer/Yarn Dumper 01/13/2018-Current PHONE: [phone] SHARODNA Rosa Internal Medicine 04/24/2021-Current PHONE: [phone] Candace has no Care Guidelines for this patient. EThanh VISIT COUNT (12 MO.) [address] [place] [address] TOTAL 7 NOTE: Visits indicate total known visits. ED/UCC VISIT TRACKING (12 MO.) 12/30/2021 08:00 [facility] [place] TYPE: Emergency COMPLAINT: - ABD PAIN 12/29/2021 08:20 [facility] James [place] TYPE: Emergency COMPLAINT: - ABD PAIN 05/20/2021 09:39 SAL[facility]ATORE James [place] TYPE: Emergency COMPLAINT: - L LEG PAIN DIAGNOSES: - Pain in left leg - Pure hypercholesterolemia, unspecified - Anemia, unspecified - Other motor vehicle light assembler (current) drug therapy - Hypothyroidism, unspecified - Allergy status to other drugs, medicaments and biological substances - Gastro-esophageal reflux disease without esophagitis - Latex allergy status - Allergy status to analgesic agent 05/08/2021 16:[address] [facility] [place] TYPE: Emergency COMPLAINT: - CHEST PAIN/SOB DIAGNOSES: - Pure hypercholesterolemia, unspecified - Latex allergy status - Allergy status to other drugs, medicaments and biological substances - Other chest pain - Dyspnea, unspecified - Anemia, unspecified - Hypothyroidism, unspecified - Allergy status to analgesic agent - Gastro-esophageal reflux disease without esophagitis - Other [facility] (current) drug therapy [facility]21 [facility] DIAGNOSES: - Pleurodynia - chest pain and diff breathing - Chest Pain; Difficulty Breathing 04/25/2021 13:37 [facility] DIAGNOSES: - Pain in left leg - SOB - Shortness of Breath - Leg Pain 04/23/2021 04:13 SALVATORE Figueroa TYPE: Emergency COMPLAINT: - VAGINAL BLEEDING DIAGNOSES: [...] visits to display in this time frame [email or web address]
[2021-12-30] MEDS ORDERED: PREDNISONE20 MG PO (11:51)
== END 2021-12-30 12:26 | disposition home or self-care (01) ==
LOC: ED 07:59
DX: M54.14 Radiculopathy, thoracic region (principal); K21.9 Gastro-esophageal reflux disease without esophagitis; E78.00 Pure hypercholesterolemia, unspecified; E03.9 Hypothyroidism, unspecified; D64.9 Anemia, unspecified; Z88.2 Allergy status to sulfonamides; Z88.8 Allergy status to other drugs, medicaments and biological substances
CPT/HCPCS: 74022; 96372; 99284-25; J1885

== ENCOUNTER 2022-02-19 08:42 | Emergency (ER) | payer OTHER ==
[~2022-02-19] VITALS: Ht 167.6 cm; Wt 62.8 kg
[~2022-02-19 08:42] MED LIST changes: +PREDNISONE20 MG PO
--- OUTSIDE RECORDS SUMMARY | 2022-02-19 08:44 | XMS ---
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 EThanh VISIT COUNT (12 MO.) 2 Amy Yao TOTAL 8 NOTE: Visits indicate total known visits. ED/UCC VISIT TRACKING (12 MO.) 02/19/2022 08:42 [facility] [place] TYPE: Emergency COMPLAINT: - URINATING BLOOD 12/30/2021 08:00 [facility] [place] TYPE: Emergency COMPLAINT: - ABD PAIN DIAGNOSES: - Gastro-esophageal reflux disease without esophagitis - Anemia, unspecified - Pure hypercholesterolemia, unspecified - Radiculopathy, thoracic region - Hypothyroidism, unspecified - Allergy status to other drugs, medicaments and biological substances - Unspecified abdominal pain - Allergy status to sulfonamides 12/29/2021 08:20 [facility] [place] [facility] TYPE: Emergency COMPLAINT: - ABD PAIN DIAGNOSES: - Latex allergy status - Other technician terminal and repeater (current) drug therapy - Hematuria, unspecified - Gastro-esophageal reflux disease without esophagitis - Left upper quadrant pain - Allergy status to other drugs, medicaments and biological substances 05/20/2021 09:39 [facility] [place] [facility] [place] TYPE: Emergency COMPLAINT: - L LEG PAIN DIAGNOSES: - Pain in left leg - Pure hypercholesterolemia, unspecified - Anemia, unspecified - Other fdc (current) drug therapy - Hypothyroidism, unspecified - Allergy status to other drugs, medicaments and biological substances - Gastro-esophageal reflux disease without esophagitis - Latex allergy status - Allergy status to analgesic agent 05/08/2021 16:58 [facility] [place] [facility] [place] TYPE: Emergency COMPLAINT: - CHEST PAIN/SOB DIAGNOSES: - Pure hypercholesterolemia, unspecified - Latex allergy status - Allergy status to other drugs, medicaments and biological substances - Other chest pain - Dyspnea, unspecified - Anemia, unspecified - Hypothyroidism, unspecified - Allergy status to analgesic agent - Gastro-esophageal reflux disease without esophagitis - Other f[facility] (current) drug therapy [facility] [place] [facility] DIAGNOSES: - Pleurodynia - chest pain and diff breathing - Chest Pain; Difficulty Breathing 04/25/2021 13:37 [facility] [place] TYPE: Emergency DIAGNOSES: - Pain in left leg - SOB - Shortness of Breath - Leg Pain 04/23/2021 04:13 [facility] [place] TYPE: Emergency COMPLAINT: - VAGINAL BLEEDING [...] visits to display in this time frame [email or web address]
[2022-02-19] MEDS ORDERED: BUTALB-ACETAMI1 EACH PO (11:24)
[2022-02-19] MEDS ORDERED: ONDANSETRON ODT8 MG PO (11:24)
== END 2022-02-19 12:21 | disposition home or self-care (01) ==
LOC: ED 08:42
DX: R31.29 Other microscopic hematuria (principal); G43.909 Migraine, unspecified, not intractable, without status migrainosus; K21.9 Gastro-esophageal reflux disease without esophagitis; E78.00 Pure hypercholesterolemia, unspecified; E03.9 Hypothyroidism, unspecified; D64.9 Anemia, unspecified; Z88.8 Allergy status to other drugs, medicaments and biological substances; Z91.040 Latex allergy status; Z79.899 Other long term (current) drug therapy
CPT/HCPCS: 81001; 96374; 96375; 99283-25; A9270; J1885; J2405; J7030

== ENCOUNTER 2022-12-28 08:23 | Emergency (ER) | payer OTHER ==
[~2022-12-28] VITALS: Ht 167.6 cm; Wt 65.8 kg
--- OUTSIDE RECORDS SUMMARY | 2022-12-28 08:26 | XMS ---
PreManage Notification: SAMAN HAY Security [employer] Feeder Events No recent Security Events currently on file CRITERIA MET - Group Notification CARE PROVIDERS NIK MCDONOUGH Real Estate Rental Agent/Sausage Wrapper 01/13/2018-Current PHONE: [phone] SHARONDA Rosa Internal Medicine 04/24/2021-Current PHONE: [phone] Candace has no Care Guidelines for this patient. EThanh VISIT COUNT (12 MO.) Shahram Yao TOTAL 4 NOTE: Visits indicate total known visits. ED/UCC VISIT TRACKING (12 MO.) 12/28/2022 08:[address] [facility] TYPE: Emergency COMPLAINT: - HURTS TO BREATHE, L LEG PAIN 02/19/2022 08:42 [facility] [place] TYPE: Emergency COMPLAINT: - URINATING BLOOD DIAGNOSES: - Allergy status to other drugs, medicaments and biological substances - Anemia, unspecified - Gastro-esophageal reflux disease without esophagitis - Hematuria, unspecified - Hypothyroidism, unspecified - Latex allergy status - Migraine, unspecified, not intractable, without status migrainosus - Other mcc (current) drug therapy - Other microscopic hematuria - Pure hypercholesterolemia, unspecified 12/30/2021 08:00 [facility] [place] TYPE: Emergency COMPLAINT: - ABD PAIN DIAGNOSES: - Allergy status to other drugs, medicaments and biological substances - Allergy status to sulfonamides - Anemia, unspecified - Gastro-esophageal reflux disease without esophagitis - Hypothyroidism, unspecified - Pure hypercholesterolemia, unspecified - Radiculopathy, thoracic region - Unspecified abdominal pain 12/29/2021 08:20 [facility] [place] TYPE: Emergency COMPLAINT: - ABD PAIN DIAGNOSES: - Allergy status to other drugs, medicaments and biological substances - Gastro-esophageal reflux disease without esophagitis - Hematuria, unspecified - Latex allergy status - Left upper quadrant pain - Other mcc (current) drug therapy INPATIENT VISIT TRACKING (12 MO.) No inpatient visits to display in this time frame [email or web address]
[2022-12-28] MEDS ORDERED: VALIUM10 MG PO (08:41)
[2022-12-28 10:33] VITALS: BP 107/62
--- NOTE | 2022-12-28 18:24 | EKG ---
[facility] [address] [place] [address] Signed Normal sinus rhythm Septal infarct (cited on or before 08-MAY-2021) T wave abnormality, consider inferior ischemia Abnormal ECG When compared with ECG of 08-MAY-2021 17:02, Questionable change in initial forces of Anterior leads T wave inversion more evident in Inferior leads Confirmed by Nik Jackson MD () on 12/28/2022 6:24:17 PM Electronically Signed By: NIK JACKSON MD 12/28/22 1824 PATIENT NAME: SAMAN HAY Electrocardiogram DATE OF : 78 PHYSICIAN: NIK JACKSON MD REPORT #: [id number] REPORT IS CONFIDENTIAL AND NOT TO BE RELEASED WITHOUT AUTHORIZATION
== END 2022-12-28 10:33 | disposition home or self-care (01) ==
LOC: ED 08:23
DX: R07.81 Pleurodynia (principal); E03.9 Hypothyroidism, unspecified; K21.9 Gastro-esophageal reflux disease without esophagitis; Z91.040 Latex allergy status; Z88.8 Allergy status to other drugs, medicaments and biological substances; Z79.890 Hormone replacement therapy; Z79.899 Other long term (current) drug therapy
CPT/HCPCS: 36415; 71260; 80053; 84484; 85025; 85379; 93005; 93010; 93971; 99285-25; Q9967